=== PATIENT | female | born 1995 | race Hispanic/Latino ===

== ENCOUNTER 2017-01-04 04:15 | Inpatient (IN) | payer OTHER, MEDICAID ==
[~2017-01-04] VITALS: Ht 149.9 cm; Wt 80.3 kg
[~2017-01-04 04:15] MED LIST: Docusate Sodium PO; Ibuprofen PO; PREN-99 PO
[2017-01-04] MEDS ORDERED: Lactated Ringer's 1,000 ML IV PRN (04:47)
[2017-01-04] MEDS ORDERED: Oxytocin 10 Unit/mL Inj IM PRN ×2 (04:50→07:15)
[2017-01-04] MEDS ORDERED: Oxytocin 30 Units/500 mL LR 30 UNITS in IV Premix 1 EACH IV PRN ×2 (04:50→07:15)
[2017-01-04] MEDS ORDERED: Methylergonovine 0.2 mg/mL Inj IM PRN ×2 (04:50→07:15)
[2017-01-04] MEDS ORDERED: Hemorrhage Kit, Post Partum XX ONE ×2 (04:50→07:15)
[2017-01-04] MEDS ORDERED: Carboprost 250 mCg/mL Inj IM PRN ×2 (04:50→07:15)
[2017-01-04] MEDS ORDERED: Ondansetron 2 mg/mL 2 mL Inj IVPUSH PRN (04:50)
[2017-01-04] MEDS ORDERED: Sodium Chloride LOK Flush 10 mL Syringe IVFLUSH PRN (04:50)
[2017-01-04] MEDS ORDERED: fentaNYL-PF 50 mCg/mL 2 mL Inj IVPUSH PRN (04:50)
[2017-01-04] MEDS ORDERED: Oxytocin 30 Units/500 mL LR Premix IV ONE (05:03)
[2017-01-04 05:10] LABS: Mean Corpuscular Hemoglobin 29.9 pg (27.0-35.0); Mean Corpuscular Volume 88.3 fL (81-100)
--- NOTE | 2017-01-04 06:13 | HP ---
[address] [address] HISTORY AND PHYSICAL PATIENT: IGNACIO HOLGUIN : 1995 MR#: [id number] ADMIT: 01/04/2017 JOB ID: [id number] DATE OF SERVICE: CHIEF COMPLAINT: Contractions. HISTORY OF PRESENTING ILLNESS: This is a 21-year-old 3, para 1-0-1-1 at 40 weeks and 2 days, dated by a last menstrual period and consistent with 10 weeks ultrasound. The patient presented with contractions, regular and found to be 7 cm dilated, 0 station. Membranes ruptured during the exam. Time of rupture was 5 a.m., spontaneous and the clear fluid. No other complaint. complicated with history of ETOP with suction D and C. . Obesity BMI 31 at intake and current BMI 35.8. GYNECOLOGIC HISTORY: Regular menstrual cycle. Denies history of abnormal Pap smear. PAST MEDICAL HISTORY: History of mastitis, headache. PAST OBSTETRIC HISTORY: First was 2013, was a suction D and C. The second was July 20, 2014 spontaneous vaginal delivery under epidural anesthesia, 7 pounds ounces at 40 weeks gestation, delivered at [facility] without complications. PAST SURGICAL HISTORY: None. MEDICATIONS: vitamins. ALLERGIES: No known drug allergies. REVIEW OF SYSTEMS: A 10 point review of system is negative except for the items in the history of presenting illness. PHYSICAL EXAMINATION: Vital signs is blood pressure 127/75, heart rate 82, respiratory rate 16, temperature 36.8. heart tones Noemi 135, moderate variability, positive accelerations, positive early decelerations. Contractions every 1-2 minutes. General: Alert and oriented to time, place and person. Head: Normocephalic, atraumatic. Neck supple. Chest: Equal air entry bilaterally. No added sounds. Cardiovascular: Regular rate and rhythm. Abdomen is gravid. Estimated weight to palpation 7 1/2 pounds. Cervical exam: 8 cm, 0 station, 90% effaced. Lower extremities: +1 edema bilaterally. LABORATORIES: Blood type O positive, RPR nonreactive, HIV nonreactive, rubella immune, hepatitis nonreactive. One hour glucose screening within normal limits 88. Hematocrit 35% on September 22, 2016. Quad screen negative for neural tube defect, Down's syndrome and trisomy 18. Pap smear within normal limits done July 27, 2016. Group B strep negative on December 01, 2016. ASSESSMENT: This is a 21-year-old 3, para 1-0-1-1, at 40 weeks and 2 days gestation in active spontaneous labor. GBS negative, rubella immune and Rh positive. PLAN: Admit with orders and labs. Anticipate normal vaginal delivery. The patient declines epidural at this time.
[2017-01-04] MEDS ORDERED: oxyCODONE-Acetamin 5-325 mg Tablet PO PRN (07:15)
[2017-01-04] MEDS: Lactated Ringer's 1,000 ML IV SCH ×2 (07:15→15:15)
[2017-01-04] MEDS ORDERED: Benzocaine (Dermoplast) 20% 60 Gm Spray TOPICAL PRN (07:15)
[2017-01-04] MEDS ORDERED: LANOlin HPA 7 Gm Ointment TOPICAL PRN (07:15)
[2017-01-04] MEDS ORDERED: Witch Hazel-Glycerin Pads TOPICAL PRN (07:15)
--- NOTE | 2017-01-04 07:59 | OP ---
[address] [address] OPERATIVE REPORT PATIENT: IGNACIO HOLGUIN : 1995 MR#: [id number] ADMIT: 01/04/2017 JOB ID: [id number] DATE OF SURGERY: 01/04/2017 PREOPERATIVE DIAGNOSIS(ES): 1. Intrauterine at 40 weeks and 2 days. 2. Active labor. POSTOPERATIVE DIAGNOSIS(ES): 1. Intrauterine at 40 weeks and 2 days. 2. Active labor. 3. Status post normal vaginal delivery. PROCEDURE: 1. Spontaneous vaginal delivery. 2. Second-degree laceration repair. ESTIMATED BLOOD LOSS: 350 mL. ANESTHESIA: None. SURGEON: Karla Lee MD DOOR CUTTER: None. COMPLICATIONS: None. OUTCOME: Male delivered in cephalic presentation. Right occiput anterior position, with one nuchal cord was released before the delivery of the shoulders. Placenta was delivered spontaneously intact with a three-vessel cord. Clear amniotic fluid. DESCRIPTION OF PROCEDURE: This is a 21-year-old, 3, para 1-0-1-1, who presented at 40 weeks and 2 days gestation with contractions and found to be 6-7 cm dilated at presentation. The patient was admitted in labor and continued to progress spontaneously to deliver 2-1/2 hours after presentation. Delivered a male in cephalic presentation, with one nuchal cord that was released over the occiput before delivery of the shoulders without difficulty. Infant was placed on the maternal abdomen. Cord was clamped and cut immediately because the infant was flaccid. Infant became vigorous stimulation, and the infant was placed back onto the maternal abdomen for chest to chest contact. The 1st minute Apgars were 8. At five minutes, Apgars were 9. Cord segment was collected for gases. Venous cord blood was able to be collected. The pH was 7.3. Cord blood was collected for typing. Placenta was delivered spontaneously intact with three-vessel cord. The perineum was examined. A 2nd-degree laceration was repaired under local anesthesia with 3-0 Vicryl. The fundus was firm. Minimal bleeding at the end of the procedure. Oxytocin was started after delivery of the placenta. All instrument, needles, sponge counts were correct x2. The patient and infant were recovering in the delivery room in stable condition. Karla Lee MD, was present and scrubbed for the entire procedure.
[2017-01-04] MEDS: Ascorbic Acid 500 mg Tablet PO SCH ×2 (11:07→17:38)
[2017-01-05 06:50] LABS: Mean Corpuscular Hemoglobin 29.6 pg (27.0-35.0); Mean Corpuscular Volume 90.1 fL (81-100)
[2017-01-05] MEDS: Ascorbic Acid 500 mg Tablet PO SCH (07:28)
--- NOTE | 2017-01-05 09:00 | PCM.DIOB ---
Obstetrical Disch Instruction Date of Service: Jan 05, 2017 Dates of Hospitalization Date of Hospital Admission Jan 04, 2017 at 04:40 Providers Admitting Physician: Virginia Musa MD Primary Care Physician: Karla Lee MD Attending Physician: Virginia Musa MD Discharge Diagnosis Discharge Diagnosis Status post normal vaginal delivery Mild Anemia Problems: Diet Discharge Diet: No restrictions Activity Discharge Activity-General: Pelvic Rest for 6 weeks (no sex, tampon nor douching ), Balance rest and activity, No lifting >10 pounds for 4-6 weeks Dressing and Incisional Care Hygiene: May shower, NO bathtub, hot tub or whirlpool, Perineal care, Sitz bath Follow Up Plan Follow-up appointment: Days (Two) Call your provider for: Fever or Chills, Shortness of breath, Heavy vaginal bleeding, Heavy bleeding, Epigastric pain, Excessive constipation, Vaginal discomfort, Red painful breasts, Other (chest pain, headache, change in vision, nausea/vomiting, leg swelling or pain ) Karla Lee MD Jan 05, 2017 09:00
[2017-01-05] MEDS ORDERED: OXYC1TAB24 PO (09:01)
[2017-01-05] MEDS ORDERED: IBUP-1827 PO (09:01)
--- NOTE | 2017-01-05 09:03 | PCM.DC.OB ---
Obstetrical Discharge Summary Date of Service Jan 05, 2017 Date of hospital admission Jan 04, 2017 at 04:40 Providers Admitting Physician: Virginia Musa MD Primary Care Physician: Melany Lee MD Attending Physician: Virginia Musa MD Brief History and Physical: Vital Signs (Last) Date Time Temp Pulse Resp B/P Pulse Ox O2 Delivery O2 Flow Rate FiO2 01/05/17 09:39 36.6 70 18 91/46 Laboratory Tests 72 Hours Test 01/04/17 04:58 01/05/17 06:40 White Blood Count 14.8th/mm3 (3.8-10.1) 12.3th/mm3 (3.8-10.1) Red Blood Count 4.45mil/mm3 (3.90-5.20) 3.72mil/mm3 (3.90-5.20) Hemoglobin 13.3g/dL (12.0-15.6) 11.0g/dL (12.0-15.6) Hematocrit 39.3% (35.0-46.0) 33.5% (35.0-46.0) Mean Corpuscular Volume 88.3fL (81-100) 90.1fL (81-100) Mean Corpuscular Hemoglobin 29.9pg (27.0-35.0) 29.6pg (27.0-35.0) Mean Corpuscular Hemoglobin Concent 33.8% (32.0-37.0) 32.8% (32.0-37.0) Red Cell Distribution Width 14.5% (12.3-15.4) 14.9% (12.3-15.4) Platelet Count 250bil/L (150-400) 212bil/L (150-400) Discharge Diagnosis Discharge Diagnosis Status post normal vaginal delivery Mild Anemia Problems: Diet Discharge Diet: No restrictions Activity Discharge Activity-General: Pelvic Rest for 6 weeks (no sex, tampon nor douching ), Balance rest and activity, No lifting >10 pounds for 4-6 weeks Dressing and Incisional Care Hygiene: May shower, NO bathtub, hot tub or whirlpool, Perineal care, Sitz bath Follow Up Plan Follow-up appointment: Days (Two) Call your provider for: Fever or Chills, Shortness of breath, Heavy vaginal bleeding, Heavy bleeding, Epigastric pain, Excessive constipation, Vaginal discomfort, Red painful breasts, Other (chest pain, headache, change in vision, nausea/vomiting, leg swelling or pain ) Ibuprofen (Ibuprofen) 600 Mg Tablet 600 MG PO QID PRN PRN For Pain Prescribed by: MELANY LEE MD Pnv95/Ferrous Fumarate/FA ( Multivitamins Tablet) 1 Each Tablet 1 EACH PO DAILY (Reported) oxyCODONE-Acetaminophen 5-325 mg (oxyCODONE-Acetaminophen 5-325 mg) 1 Each Tablet 1-2 TAB PO Q4H PRN PRN For Pain Prescribed by: MELANY LEE MD Discontinued Medications ([Docusate Sodium]) 100 MG CAPSULE 100 MG PO BID Prescribed by: VIRGINIA MUSA MD ([Ibuprofen]) 600 MG TABLET 600 MG PO Q6H PRN PRN For Mild Pain Prescribed by: MD Rosa KAN Omaima A MD Jan 05, 2017 09:03
[2017-01-05 09:39] VITALS: BP 91/46; PULSE 70; RESP 18
== END 2017-01-05 11:20 | disposition home or self-care (01) | DRG 775 ==
LOC: FBCO 04:15 → FBC 04:40
PROVIDERS: ADMIT Obstetrics & Gynecology; ATTEND Obstetrics & Gynecology
PROC: 10E0XZZ Delivery of Products of Conception, External Approach (ICD-10-PCS; principal; 2017-01-04)
PROC: 0KQM0ZZ Repair Perineum Muscle, Open Approach (ICD-10-PCS; 2017-01-04)
DX: O70.1 Second degree perineal laceration during delivery (principal); Z37.0 Single live birth; O99.214 Obesity complicating childbirth; Z68.35 Body mass index [BMI] 35.0-35.9, adult; O69.81X0 Labor and delivery complicated by cord around neck, without compression, not applicable or unspecified; O76 Abnormality in fetal heart rate and rhythm complicating labor and delivery; O62.3 Precipitate labor; Z3A.40 40 weeks gestation of pregnancy